=== PATIENT | female | born 1940 | race Caucasian/White ===

== ENCOUNTER 2018-09-03 11:28 | Emergency (ER) | payer MEDICARE, OTHER ==
[~2018-09-03] VITALS: Ht 154.9 cm; Wt 77.1 kg
[2018-09-03 11:40] VITALS: BP 154/97
[2018-09-03] MEDS ORDERED: LEVALBUTER1.25 MG/0. INH ×2 (11:44→11:55)
[2018-09-03] MEDS ORDERED: NORVASC2.5 MG PO (11:45)
[2018-09-03] MEDS ORDERED: LIPITOR10 MG PO (11:45)
[2018-09-03] MEDS ORDERED: FLONASE 0.05%50 MCG NASAL (11:50)
[2018-09-03] MEDS ORDERED: COLESTID1 GM PO (11:51)
[2018-09-03] MEDS ORDERED: LASIX 20 MG TAB20 MG PO (11:52)
[2018-09-03] MEDS ORDERED: AVAPRO 150 MG150 M1 PO (11:53)
[2018-09-03] MEDS ORDERED: OMEPRAZOLE40 MG PO (11:53)
[2018-09-03] MEDS ORDERED: ZYRTEC10 M5 PO (11:53)
[2018-09-03] MEDS ORDERED: CARDIZEM60 MG PO (11:54)
[2018-09-03] MEDS ORDERED: PROBIOTIC1 EAC1 PO (11:54)
[2018-09-03] MEDS ORDERED: SENOKOT-S1 TA2 PO (11:54)
[2018-09-03] MEDS ORDERED: CENTRUM SILVER1 EAC4 PO (11:55)
[2018-09-03] MEDS ORDERED: NUVIGIL150 MG PO (11:55)
[2018-09-03] MEDS ORDERED: SINGULAIR 10 MG10 M1 PO (11:55)
[2018-09-03] MEDS ORDERED: ANTIVERT25 MG PO (11:56)
[2018-09-03] MEDS ORDERED: TUMS PO (11:56)
[2018-09-03] MEDS ORDERED: TOBRAMYCIN SULFA5 M1 OPHTHALMIC (12:00)
== END 2018-09-03 12:09 | disposition home or self-care (01) ==
LOC: M.ERS 11:28
DX: H10.9 Unspecified conjunctivitis (principal); K21.9 Gastro-esophageal reflux disease without esophagitis; I10 Essential (primary) hypertension; J45.909 Unspecified asthma, uncomplicated; E78.00 Pure hypercholesterolemia, unspecified; Z88.0 Allergy status to penicillin; Z88.1 Allergy status to other antibiotic agents; Z88.8 Allergy status to other drugs, medicaments and biological substances